=== PATIENT | male | born 1950 ===

== ENCOUNTER 2017-05-03 09:45 | Observation (INO) | payer MEDICARE, OTHER ==
[2017-05-03] MEDS ORDERED: NS 0.9% 1000 ML* 1,000 ML IV ONE (10:01)
[2017-05-03] MEDS ORDERED: Diltiazem IV VIAL* 125 MG/25 ML VIAL ONE ×2 (10:01→19:56)
[2017-05-03] MEDS ORDERED: Diltiazem IV* 5 MG/ML 5 ML VIAL (for loading dose/IV Push) (25 MG) IV SLOW PU ONE (10:01)
[2017-05-03 10:15] LABS: ABS Basophils 0 10^3/ul (0-0.2); ABS Eosinophils 0.1 10^3/ul (0-0.6); ABS Lymphocytes 1.8 10^3/ul (1.0-4.8); ABS Monocytes 0.6 10^3/ul (0-0.8); ABS Neutrophils 4.7 10^3/ul (1.5-7.7); ABS Nucleated RBC 0 10^3/ul; Eosinophil % 1.5 % (0-6); Hematocrit 33 % (42-52); Hemoglobin 10.9 g/dl (14.0-18.0); Lymphocyte % 24.3 % (25-47); Mean Corpuscular HGB Conc 33 g/dl (31-36); Mean Corpuscular Hemoglobin 29 pg (27-31); Mean Corpuscular Volume 87 fL (80-94); Mean Platelet Volume 10 um3 (7.4-10.4); Nucleated Red Blood Cells % 0.1; Platelet Count 183 10^3/ul (150-450); Red Blood Count 3.78 10^6/ul (4.0-5.4); Red Cell Distribution Width 13 % (10.5-15); White Blood Count 7.2 10^3/ul (3.5-10.8)
[2017-05-03 10:21] LABS: EGFR Non-African American 63.8 (>60)
[2017-05-03] MEDS ORDERED: Diltiazem DRIP* 100 MG/100 ML ADDV.BAG IVPB ONE (10:31)
[2017-05-03 10:33] LABS: INR 1.1 (0.77-1.02)
--- NOTE | 2017-05-03 10:38 | RAD ---
INDICATION: Dizziness COMPARISON: None TECHNIQUE: An AP portable view obtained at 1025 hours is submitted. FINDINGS: Bones/Soft Tissues: There are no acute bony findings. Cardiomediastinal: The cardiomediastinal silhouette is top normal in size. Lungs: There are no infiltrates. Pleura: There are no pleural effusions. Other: None IMPRESSION: NO ACTIVE DISEASE.
[2017-05-03 10:43] LABS: Urine Appearance Clear; Urine Blood Negative (Negative); Urine Color Yellow; Urine Ketones Negative (Negative); Urine Protein Negative (Negative); Urine Specific Gravity 1.008 (1.010-1.030); Urine Urobilinogen Negative (Negative)
[2017-05-03] MEDS ORDERED: Diltiazem IV VIAL* 125 MG in NS 0.9% 100 ML* 100 ML IVPB ONE ×4 (11:00→14:41)
[2017-05-03] MEDS ORDERED: Magnesium Sulfate 2 GM IV* 2 GM/50 ML BAG IVPB ONE (11:24)
[2017-05-03] MEDS ORDERED: Dextrose 50% Syringe 50 ML* 25 GM/50 ML SYRINGE IV PUSH PRN (11:51)
[2017-05-03] MEDS ORDERED: Acetaminophen TAB* 325 MG PO PRN (11:54)
[2017-05-03] MEDS: Enoxaparin(*) 80 MG/0.8 ML SYR SUBCUT SCH ×2 (12:03→23:33)
[2017-05-03] MEDS: KCL 10 MEQ/50 ML IVPREMIX* 10 MEQ/50 ML BAG IV SCH ×4 (12:55→17:40)
--- NOTE | 2017-05-03 16:19 | ECHO ---
Patient: JONATHAN MCKNIGHT Rec#: [id number] : 1950 Date: 05/03/2017 Age: 66y Height: 175.26 cm / 69.0 in Weight: 86.18 kg / 189.9 lbs Sex: M BSA: 2.02 Room#: ICU 3 Admit Date#: 05/03/2017 Type: Inpatient Referring: Ggee Jurado NP Reading: Parmjit Garvin MD Radio Engineer: Samara Rowland RDCS,RDMS Transthoracic Echocardiogram Indication: AFIB BP: 123/84 HR: 127 Rhythm: A-Fib Findings History: HTN Technical Comments: The study quality is good. Left Ventricle: The left ventricular chamber size is normal. Moderate concentric left ventricular hypertrophy is observed. Septal wall hypertrophy is observed. Basal septum is severely thickened. The left ventricle appears hyperdynamic. The estimated ejection fraction is greater than 65%. The assessment of diastolic function is non-diagnostic. Left Atrium: The left atrium is severely dilated. Right Ventricle: The right ventricular chamber size and systolic function are within normal limits. Right Atrium: The right atrial cavity size is severely dilated. Aortic Valve: The aortic valve is trileaflet. The aortic valve leaflets are mildly thickened. There is trace to mild aortic regurgitation. There is no evidence of aortic stenosis. Mitral Valve: The mitral valve leaflets appear normal. There is moderate to severe mitral regurgitation. There is no evidence of mitral stenosis. Tricuspid Valve: The tricuspid valve leaflets are normal. There is moderate tricuspid regurgitation. There is evidence of mild pulmonary hypertension. Pulmonic Valve: The pulmonic valve appears normal. There is trace to mild pulmonic regurgitation. Pericardium: There is no significant pericardial effusion. Aorta: The aortic root appears normal. There is mild dilatation of the aortic arch. Pulmonary Artery: The main pulmonary artery is not well visualized. Venous: The inferior vena cava appears normal in size. There is an approximate 50% respiratory change in the inferior vena cava dimension. Summary: There was not any prior study for comparison. Conclusions Moderate concentric left ventricular hypertrophy is observed. The left ventricle appears hyperdynamic. The estimated ejection fraction is greater than 65%. Septal wall hypertrophy is observed. Basal septum is severely thickened. The right ventricular chamber size and systolic function are within normal limits. There is trace to mild aortic regurgitation. There is moderate to severe mitral regurgitation. There is moderate tricuspid regurgitation. There is evidence of mild pulmonary hypertension. There is no significant pericardial effusion. There was not any prior study for comparison. Measurements Name Value Normal Range RVIDd (AP) 2D 3.3 cm (0.9 - 2.6) RVDdMajor (2D) 4.3 cm (2.2 - 4.4) RAd ISD 4CH 7.2 cm (3.4 - 4.9) RA (A4C)W 6 cm (2.9 - 4.6) IVSd (2D) 2.5 cm (0.6 - 1) LVPWd (2D) 1.5 cm (0.6 - 1) LVIDd (2D) 3.2 cm (3.6 - 5.4) LVIDs (2D) 2 cm - LV FS (2D) 38 % (25 - 45) Aortic Annulus 2.1 cm (1.4 - 2.6) Ao root diameter (2D) 3.2 cm (2.1 - 3.5) Ascending Ao 2.5 cm (2.1 - 3.4) Aortic arch 3.9 cm (1.8 - 3.4) LA dimension (AP) 2D 4.8 cm (2.3 - 3.8) LAd ISD 4CH 6.7 cm (2.9 - 5.3) LA ISD 4CH W 6.3 cm (2.5 - 4.5) Name Value Normal Range LA ESV SP 4CH (A/L) 202.44 ml - LA ESV SP 2CH (A/L) 131.12 ml - LA ESV BP (A/L) 170.68 ml - LA ESV BP (A/L) index 85 ml/m2 - LA ESV SP 4CH (MOD) 189.08 ml - LA ESV SP 2CH (MOD) 124.27 ml - LV EDV SP 4CH (MOD) 72.33 ml - LV ESV SP 4CH (MOD) 10.99 ml - EF SP 4CH (MOD) 84.81 % - LV EDV SP 2CH (MOD) 54.29 ml - LV ESV SP 2CH (MOD) 8.66 ml - EF SP 2CH (MOD) 84.05 % - LV EDV BP 84.28 ml - LV ESV BP 14.44 ml - BP EF (MOD) 83 % - Name Value Normal Range MV E-wave Vmax 0.8 m/sec - MV deceleration time 133 msec - LV lateral e' Vmax 0.08 m/sec - LV E:e' lateral ratio 10 ratio - Name Value Normal Range AV Vmax 1.2 m/sec - AV peak gradient 6 mmHg - LVOT Vmax 0.9 m/sec - LVOT peak gradient 3.2 mmHg - NARENDRA Vmax 0.3 m/sec - Name Value Normal Range MV Vmax 1.6 m/sec - MV VTI 23 cm - MV peak gradient 10 mmHg - MV mean gradient 3.9 mmHg - MV PHT 41 msec - MR Vmax 4.71 m/sec - MR VTI 122.34 cm - MVA (PHT) 5.4 cm2 - Name Value Normal Range TR Vmax 2.6 m/sec - TR peak gradient 27 mmHg - RAP 8 mmHg - RVSP 35 mmHg - IVC diameter 1.8 cm - Name Value Normal Range PV Vmax 0.5 m/sec - PV peak gradient 1 mmHg -
[2017-05-03] MEDS: Insulin LISPRO* 1 UNITS UNIT SUBCUT SCH (17:49)
--- NOTE | 2017-05-03 18:30 | HP ---
CC: Dr. Antonio Rosas, phone# [phone], [address] [place] [address] * HOSPITAL MEDICINE HISTORY AND PHYSICAL: DATE OF ADMISSION: 05/03/17 PRIMARY CARE PHYSICIAN: Dr. Antonio Rosas. ATTENDING PROVIDER: Doug James MD* (DICTATED BY MEAGHAN GUERRIER NP) CHIEF COMPLAINT: Palpitations and lightheadedness. HISTORY OF PRESENT ILLNESS: Mr. Arenas is a 66-year-old male with a past medical history of diabetes, hypertension, hyperlipidemia, and prostate cancer diagnosed March 2015, who presents to the hospital today with concern for over a week of lightheadedness with palpitations. Mr. Arenas states he began to feel unwell 1 week ago, he noted that he felt quite dizzy when standing up, he felt nauseous, but did not vomit, this always seemed to resolve when he would sit down. He had some body aches and a low-grade fever. He had felt palpitations whenever standing. Last night, he could not sleep through the night because the palpitations persisted and he felt like his heart was "going all over the place." He states he has never had these symptoms prior to a week ago. He is on Lupron therapy for his prostate cancer and says that at times this causes hot flashes and shortness of breath, but felt that these symptoms were different. In the emergency room, Mr. Arenas was confirmed to be in atrial fibrillation with a heart rate running as high as 150. His labs showed that he has anemia with a hemoglobin of 10.9, hematocrit of 33, has unknown baseline hemoglobin and hematocrit. He has an elevated BNP to 1413, no known baseline. Chest x-ray shows no acute process. PAST MEDICAL HISTORY: 1. Prostate cancer since March 2015, status post 5 weeks' radiation, seed implantation, and surgery. 2. Type 2 diabetes, non-insulin dependent. 3. Recent diagnosis of 2 months ago of hypertension. 4. Hyperlipidemia. MEDICATIONS: As outpatient are: 1. Flomax 0.4 mg q. day. 2. Hydrochlorothiazide 12.5 mg p.o. q. day. 3. Aspirin 81 mg p.o. q. day. 4. Metformin 500 mg b.i.d. 5. Amlodipine 5 mg p.o. q. day. 6. Simvastatin 10 mg p.o. q. day. 7. Lupron 1 per month. FAMILY HISTORY: The patient reports his mother at age 81 with complications related to Alzheimer's disease. His mother also had breast cancer. Sister had breast cancer. There is also a significant amount of diabetes in the family. SOCIAL HISTORY: No tobacco or drug use. He drinks about 2 drinks per month. He is a retired musician. He lives with his , Ernestina, who is the healthcare proxy. REVIEW OF SYSTEMS: A 14-point review of systems was completed with Mr. Arenas, and all those not mentioned above were negative. PHYSICAL EXAMINATION GENERAL: Mr. Arenas is lying in the bed. He is in absolutely no acute distress. His at the bedside. VITAL SIGNS: Temperature 97.5, pulse rate 128 to 140, respiratory rate 20, O2 saturation 96% on room air, blood pressure 127/85. LUNGS: Clear to auscultation bilaterally with no accessory muscle use and good aeration. HEART: S1, S2. No murmur, rub, or gallop, and irregular and rapid. ABDOMEN: Soft, nontender with bowel sounds positive x4. EXTREMITIES: No cyanosis, no edema. NEURO: He is alert, He is oriented x3. He moves all extremities equally. There is no facial asymmetry or focal weakness. Extraocular movements are intact. SKIN: Intact. DIAGNOSTIC STUDIES/LAB DATA: WBC , hemoglobin 10.9, hematocrit 33, platelet count 183. INR 1.10. Sodium 136, potassium 3.6, chloride 104, serum bicarbonate 22, BUN 18, creatinine 1.15, glucose 172, lactic acid 2.9, magnesium 1.8. Iron 66, TIBC 298, percent saturation 22. AST 78, ALT 113. Troponin 0.03. CRP 14.60. BNP 1413. TSH 1.98. Folate greater than 20. Vitamin B12 734. Chest x-ray shows no active disease. EKG shows atrial fibrillation with heart rate of about 140. ASSESSMENT AND PLAN: Mr. Arenas is 66-year-old male with a past medical history of diabetes, hypertension, prostate cancer, who presents to the hospital today with concern for lightheadedness and palpitations, found to be in rapid atrial fibrillation, new onset. Our plans are for inpatient admission as expected length of stay to be greater than 2 days for the followin. Rapid atrial fibrillation. The patient has been given a Cardizem bolus and then Cardizem drip has been initiated in the emergency department. His heart rate remains elevated. Plan to monitor the patient in the intensive care unit overnight to allow for adjustment and titration of Cardizem or addition of other agents as needed. I am not clear what is driving the patient's atrial fibrillation. He has no history of lung disease, he is not a smoker. He is very infrequent drinker. He does not report any recent illnesses. I do note that he is anemic and it is unclear of what chronicity this finding is. I have asked the records from the patient's primary care office. I have also checked stool guaiac, which has been sent as well as iron, vitamin B12, and folate, which have already been resulted and showed that he does not have any deficiencies there. In terms of the workup, the patient will have a transthoracic echocardiogram. I am repleting his electrolytes with potassium and magnesium supplementation. I have consulted Dr. Garvin who will be seeing the patient with question of need for possible transesophageal echocardiogram with cardioversion tomorrow. The patient will have a transthoracic echocardiogram today. In terms of anticoagulation, the patient will have Lovenox b.i.d. 2. Type 2 diabetes. Plan to hold the patient's medication and will have blood glucoses q.a.c. with lispro sliding scale insulin. 3. Hypertension. Plan to hold amlodipine and hydrochlorothiazide as the rate- control agents that are needed for heart rate control will likely lower his blood pressure. 4. Code status. Full code. TIME SPENT: Approximately 60 minutes was spent on admission of this patient; more than half time was spent with the patient at the bedside reviewing the events leading up to this hospitalization, performing the physical examination, and reviewing my plan of care. MEAGHAN GUERRIER NP [id number]/[facility] #: [id number] AYUSH
[2017-05-03] MEDS ORDERED: Diltiazem IV VIAL* 125 MG in NS 0.9% 100 ML* 100 ML IVPB SCH (21:00)
--- NOTE | 2017-05-04 00:01 | CONS ---
CARDIOLOGY CONSULTATION: DATE OF CONSULTATION: 05/03/17 INDICATION FOR CONSULTATION: Atrial fibrillation. HISTORY OF PRESENT ILLNESS: The patient is a 66-year-old gentleman with prostate cancer, he is on Lupron injections who came to the emergency room because of feeling lightheaded and palpitations. He was found to be in atrial fibrillation with rapid ventricular response. In speaking with the patient, he states for the past month or so, he has been having episodes of sweating and feeling uncomfortable. These are very similar to his ongoing symptoms from his Lupron injections. However, in the last month or so, he has also been noticing palpitations and lightheadedness. This is different from his usual hot flashes. He states when they occur, they last about 3 or 4 hours and then resolve. He denies any chest pain. He denies any orthopnea. He does have lightheadedness. He denies any syncope. Again, on arrival to the emergency room, he was in atrial fibrillation with rapid ventricular response, his blood pressure was stable. PAST MEDICAL HISTORY: Significant for: 1. Prostate cancer. 2. Type 2 diabetes. 3. Hypertension. 4. Hyperlipidemia. OUTPATIENT MEDICATIONS: 1. Flomax 0.4 mg a day. 2. Hydrochlorothiazide 12.5 mg a day. 3. Aspirin 81 mg a day. 4. Metformin 500 mg b.i.d. 5. Amlodipine 5 mg a day. 6. Simvastatin 10 mg a day. 7. Lupron injections once a month. FAMILY HISTORY: His mother at 81 of Alzheimer disease. He does have a significant history of diabetes in his family. SOCIAL HISTORY: He denies tobacco use. He does have 1 to 2 drinks of alcohol a month. He is a retired musician. He lives with his . PHYSICAL EXAMINATION: Vital Signs: Height is 5 feet 9 inches, weight is 195 pounds. Temperature 97.9, heart rate 111, blood pressure 128/82, respiratory rate is 15, oxygen saturation 97% on room air. Sclerae anicteric. Oropharynx is pink without erythema. Carotids are 2+ without bruits. JVD is normal. Thyroid is normal. Cardiac Exam: S1, S2 with a 1/6 systolic ejection murmur heard best at the apex. PMI is normal. Lungs: Clear to auscultation bilaterally. There is no dullness to percussion. Abdomen is soft, nontender, nondistended with normoactive bowel sounds. Extremities show no edema. He has 2+ pulses throughout. The patient is awake, alert and oriented. He moves all 4 extremities equally. DIAGNOSTIC STUDIES/LAB DATA: White blood cell count 7.2, hemoglobin 10, hematocrit 33, platelet count 183,000. Chemistries are within normal limits. BUN 18, creatinine 1.15. AST and ALT are mildly elevated. BNP is 1413. Troponin level 0.03. INR is 1.1. EKG demonstrates atrial fibrillation with rapid ventricular response. Echocardiogram shows moderate left ventricular hypertrophy. He does have septal hypertrophy, but no evidence of outflow tract obstruction. He has moderate to severe mitral regurgitation, mild tricuspid regurgitation with mild pulmonary hypertension. IMPRESSION: This is a 66-year-old gentleman with a history of prostate cancer who was admitted to the emergency room because of palpitations and lightheadedness. He was found to be in atrial fibrillation with a rapid ventricular response. The patient was started on IV Cardizem. He was started on Lovenox injections. It is unclear how long the patient has been in atrial fibrillation. The patient will be evaluated for transesophageal echocardiogram and possible cardioversion. The patient is mildly anemic, this is likely due to anemia of chronic disease. However, this will be evaluated before putting him on long-term anticoagulation. The patient will need followup as an outpatient with possible stress testing and repeat echocardiogram to evaluate his mitral regurgitation. This was discussed with Gege Jurado, nurse practitioner. [id number]/[facility] #: [id number] AYUSH
[2017-05-04 06:11] LABS: EGFR Non-African American 59.6 (>60)
--- NOTE | 2017-05-04 07:38 | PN ---
Subjective Date of Service: 05/04/17 Interval History: Mr. Arenas denies any lightheadedness, palpitations or chest pain. He converted to NSR overnight. He developed pain to his right knee overnight with swelling consistent with his history of gout. His last gout attack to that knee was approximately 2 months ago. Objective Active Medications: Acetaminophen (Tylenol Tab*) 650 mg PO Q6H PRN Aspirin (Aspirin Ec Low Dose*) 81 mg PO DAILY GRACIE Atorvastatin Calcium (Lipitor*) 5 mg PO DAILY GRACIE Dextrose (D50w Syringe 50 Ml*) 12.5 gm IV PUSH .FOR FS < 60 - SS PRN Enoxaparin Sodium (Lovenox(*)) 80 mg SUBCUT Q12H GRACIE Diltiazem HCl 125 mg/ Sodium (Chloride) 125 mls @ 15 mls/hr IVPB Q8H GRACIE; 15 MG /HR Insulin Human Lispro (Humalog*) 0 units SUBCUT AC GRACIE Tamsulosin HCl (Flomax Cap*) 0.4 mg PO DAILY GRACIE Vital Signs: Temp Pulse Resp BP Pulse Ox 99.4 F 77 18 130/92 82 05/04/17 07:29 05/04/17 09:15 05/04/17 09:15 05/04/17 09:00 05/04/17 09:15 Oxygen Devices in Use Now: None Appearance: Male lying in bed in NAD Eyes: No Scleral Icterus Ears/Nose/Mouth/Throat: Mucous Membranes Moist Neck: Trachea Midline Respiratory: Symmetrical Chest Expansion and Respiratory Effort, Clear to Auscultation Cardiovascular: NL Sounds; No Murmurs; No JVD, No Edema Abdominal: NL Sounds; No Tenderness; No Distention Extremities: - - Right knee with mild swelling, no warmth, ROM impaired by pain Skin: No Rash or Ulcers Neurological: Alert and Oriented x 3, NL Muscle Strength and Tone Nutrition: Taking PO's Result Diagrams: 05/03/17 09:58 05/04/17 05:45 Microbiology and Other Data: Vital Signs: Temp Pulse Resp BP Pulse Ox 99.4 F 74 31 120/74 97 05/04/17 07:29 05/04/17 06:00 05/04/17 06:00 05/04/17 06:00 05/04/17 06:00 Assess/Plan/Problems-Billing Assessment: Mr. Arenas is a 66 yo male with a PMH of prostate cancer, DM, and hypertension who was admitted on 05/03/16 with rapid atrial fibrillation. - Patient Problems (1) Atrial fibrillation Comment: - Converted to NSR overnight, HR 70s. Plan to ambulate to determine if patient able to maintain NSR. - D/C diltiazem and start po metoprolol (cardizem interacts with colchicine). - Continue lovenox. - Appreciate cardiology consultation. (2) Anemia Comment: - Suspect anemia of chronic disease, awaiting records from PCP. - GUIAC negative. No iron, vit B12, or folate deficiency. (3) Diabetes Comment: - BGs well controlled. - Continue lispro SSI coverage with meals. Hold metformin. (4) Hypertension Comment: - SBP 110-130s - Hold amlodipine and hctz, start metoprolol now. (5) Hyperlipidemia Comment: - Continue simvastatin. (6) DVT prophylaxis Comment: - Lovenox. (7) Full code status Comment: Status and Disposition: Inpatient. Anticipate discharge to home when medically stable.
[2017-05-04] MEDS ORDERED: Atorvastatin* 10 MG TAB PO SCH (09:00)
[2017-05-04] MEDS ORDERED: Aspirin EC Low Dose* 81 MG TAB.EC PO SCH (09:00)
[2017-05-04] MEDS ORDERED: Tamsulosin CAP* 0.4 MG PO SCH (09:00)
[2017-05-04] MEDS ORDERED: Colchicine* 0.6 MG TAB PO ONE (09:32)
--- NOTE | 2017-05-04 09:36 | ED ---
Nile Pal Angela, scribed for Jonh Sabillon MD on 05/03/17 at 1006 . Palpitations / Dysrhythmia - HPI Summary HPI Summary: This pt is a 66 y/o male presenting to [facility] via EMS c/o dizziness since this morning. Pt describes dizziness as room spinning. Pt braced himself against the wall and called 911. EMS noted the pt to be in new onset of atrial fibrillation. He currently c/o palpitations. Pt reports he had intermittent fever x2 weeks after he received the flu shot. He denies sore throat, runny nose, chest pain, SOB. He has had lupron injections for prostate CA. Pt is currently on aspirin. - History of Current Complaint Chief Complaint: EDDizziness Time Seen by Provider: 05/03/17 09:51 Hx Obtained From: Patient Onset/Duration: Lasting Hours, Still Present Timing: Constant Severity Initially: Moderate Character: Fast, Irregular Aggravating: Nothing Alleviating: Nothing Associated Signs & Symptoms: Dizzy - Allergy/Home Medications Allergies/Adverse Reactions: Allergies Allergy/AdvReac Type Severity Reaction Status Date / Time No Known Allergies Allergy Verified 05/03/17 09:54 Home Medications: Home Medications Aspirin EC Low Dose* [Ecotrin EC Low Dose 81 MG*] 81 mg PO DAILY 05/03/17 [ History Confirmed 05/03/17] Hydrochlorothiazide TAB* [Hydrodiuril TAB*] 12.5 mg PO DAILY 05/03/17 [History Confirmed 05/03/17] Simvastatin TAB(NF) [Zocor(NF)] 10 mg PO DAILY 05/03/17 [History Confirmed 05/03] Tamsulosin CAP* [Flomax CAP*] 0.4 mg PO DAILY 05/03/17 [History Confirmed ] amLODIPine TAB* [Norvasc 5 mg TAB*] 5 mg PO DAILY 05/03/17 [History Confirmed ] metFORMIN* [Glucophage 500 MG TAB *] 500 mg PO BID 05/03/17 [History Confirmed 05/03/17] PMH/Surg Hx/FS Hx/Imm Hx Endocrine/Hematology History: Reports: Hx Diabetes Cardiovascular History: Reports: Hx Hypercholesterolemia, Hx Hypertension - Cancer History Cancer Type, Location and Year: Prostate CA Infectious Disease History: No Infectious Disease History: Denies: Traveled Outside the [place] in Last 30 Days - Family History Known Family History: Negative: Cardiac Disease - Social History Alcohol Use: None Substance Use Type: Reports: None Smoking Status (MU): Never Smoked Tobacco Review of Systems Positive: Fever Negative: Sore Throat, Nasal Discharge Positive: Palpitations. Negative: Chest Pain Negative: Shortness Of Breath Neurological: Other - POS: dizziness All Other Systems Reviewed And Are Negative: Yes Physical Exam - Summary Physical Exam Summary: VITAL SIGNS: Reviewed. GENERAL: Patient is a well-developed and nourished male who is lying comfortable in the stretcher. Patient is not in any acute respiratory distress. HEAD AND FACE: No signs of trauma. No ecchymosis, hematomas or skull depressions. No sinus tenderness. EYES: PERRLA, EOMI x 2, No injected conjunctiva, no nystagmus. EARS: Hearing grossly intact. Ear canals and tympanic membranes are within normal limits. MOUTH: Oropharynx within normal limits. NECK: Supple, trachea is midline, no adenopathy, no JVD, no carotid bruit, no c- spine tenderness, neck with full ROM. CHEST: Symmetric, no tenderness at palpation LUNGS: Clear to auscultation bilaterally. No wheezing or crackles. CVS: Irregular rate and rhythm, increased tachycardia. S1 and S2 present, no murmurs or gallops appreciated. ABDOMEN: Soft, non-tender. No signs of distention. No rebound no guarding, and no masses palpated. Bowel sounds are normal. EXTREMITIES: FROM in all major joints, no edema, no cyanosis or clubbing. NEURO: Alert and oriented x 3. No acute neurological deficits. Speech is normal and follows commands. SKIN: Dry and warm Triage Information Reviewed: Yes Vital Signs On Initial Exam: Initial Vitals Temp Pulse Resp BP Pulse Ox 97.4 F 130 18 157/92 100 05/03/17 09:48 05/03/17 09:48 05/03/17 09:48 05/03/17 09:48 05/03/17 09:48 Vital Signs Reviewed: Yes Diagnostics - Vital Signs Vital Signs Temp Pulse Resp BP Pulse Ox 05/03/17 09:48 97.4 F 130 18 157/92 100 - Laboratory Lab Results: Lab Results 05/03/17 05/03/17 05/03/17 Range/Units 09:58 09:58 09:58 WBC (3.5-10.8) 10^3/ul RBC (4.0-5.4) 10^6/ul Hgb (14.0-18.0) g/dl Hct (42-52) % MCV (80-94) fL MCH (27-31) pg MCHC (31-36) g/dl RDW (10.5-15) % Plt Count (150-450) 10^3/ul MPV (7.4-10.4) um3 Neut % (Auto) (38-83) % Lymph % (Auto) (25-47) % Windsor % (Auto) (1-9) % Eos % (Auto) (0-6) % Baso % (Auto) (0-2) % Absolute Neuts (auto) (1.5-7.7) 10^3/ul Absolute Lymphs (auto) (1.0-4.8) 10^3/ul Absolute Monos (auto) (0-0.8) 10^3/ul Absolute Eos (auto) (0-0.6) 10^3/ul Absolute Basos (auto) (0-0.2) 10^3/ul Absolute Nucleated RBC 10^3/ul Nucleated RBC % INR (Anticoag Therapy) 1.10 H (0.77-1.02) APTT 31.5 (26.0-36.3) seconds Sodium 136 (133-145) mmol/L Potassium 3.6 (3.5-5.0) mmol/L Chloride 104 (101-111) mmol/L Carbon Dioxide 22 (22-32) mmol/L Anion Gap 10 (2-11) mmol/L BUN 18 (6-24) mg/dL Creatinine 1.15 (0.67-1.17) mg/dL Est GFR ( Amer) 82.1 (>60) Est GFR (Non-Af Amer) 63.8 (>60) BUN/Creatinine Ratio 15.7 (8-20) Glucose 172 H (70-100) mg/dL Lactic Acid (0.5-2.0) mmol/L Calcium 9.3 (8.6-10.3) mg/dL Magnesium 1.8 L (1.9-2.7) mg/dL Total Bilirubin 0.50 (0.2-1.0) mg/dL AST 78 H (13-39) U/L ALT 113 H (7-52) U/L Alkaline Phosphatase 91 (34-104) U/L Troponin I 0.03 (<0.04) ng/mL C-Reactive Protein 14.60 H (< 5.00) mg/L B-Natriuretic Peptide 1413 H ( - 100) pg/mL Total Protein 6.9 (6.4-8.9) g/dL Albumin 3.8 (3.2-5.2) g/dL Globulin 3.1 (2-4) g/dL Albumin/Globulin Ratio 1.2 (1-3) TSH 1.98 (0.34-5.60) mcIU/mL Urine Color Urine Appearance Urine pH (5-9) Ur Specific Bloomer (1.010-1.030) Urine Protein (Negative) Urine Ketones (Negative) Urine Blood (Negative) Urine Nitrate (Negative) Urine Bilirubin (Negative) Urine Urobilinogen (Negative) Ur Leukocyte Esterase (Negative) Urine Glucose (Negative) Urine Opiates Screen (None Detect) Ur Barbiturates Screen (None Detect) Ur Phencyclidine Scrn (None Detect) Ur Amphetamines Screen (None Detect) U Benzodiazepines Scrn (None Detect) Urine Cocaine Screen (None Detect) U Cannabinoids Screen (None Detect) Serum Alcohol < 10 (<10) mg/dL 05/03/17 05/03/17 05/03/17 Range/Units 09:58 09:58 10:30 WBC 7.2 (3.5-10.8) 10^3/ul RBC 3.78 L (4.0-5.4) 10^6/ul Hgb 10.9 L (14.0-18.0) g/dl Hct 33 L (42-52) % MCV 87 (80-94) fL MCH 29 (27-31) pg MCHC 33 (31-36) g/dl RDW 13 (10.5-15) % Plt Count 183 (150-450) 10^3/ul MPV 10 (7.4-10.4) um3 Neut % (Auto) 65.5 (38-83) % Lymph % (Auto) 24.3 L (25-47) % Windsor % (Auto) 8.1 (1-9) % Eos % (Auto) 1.5 (0-6) % Baso % (Auto) 0.6 (0-2) % Absolute Neuts (auto) 4.7 (1.5-7.7) 10^3/ul Absolute Lymphs (auto) 1.8 (1.0-4.8) 10^3/ul Absolute Monos (auto) 0.6 (0-0.8) 10^3/ul Absolute Eos (auto) 0.1 (0-0.6) 10^3/ul Absolute Basos (auto) 0 (0-0.2) 10^3/ul Absolute Nucleated RBC 0 10^3/ul Nucleated RBC % 0.1 INR (Anticoag Therapy) (0.77-1.02) APTT (26.0-36.3) seconds Sodium (133-145) mmol/L Potassium (3.5-5.0) mmol/L Chloride (101-111) mmol/L Carbon Dioxide (22-32) mmol/L Anion Gap (2-11) mmol/L BUN (6-24) mg/dL Creatinine (0.67-1.17) mg/dL Est GFR ( Amer) (>60) Est GFR (Non-Af Amer) (>60) BUN/Creatinine Ratio (8-20) Glucose (70-100) mg/dL Lactic Acid 2.9 H* (0.5-2.0) mmol/L Calcium (8.6-10.3) mg/dL Magnesium (1.9-2.7) mg/dL Total Bilirubin (0.2-1.0) mg/dL AST (13-39) U/L ALT (7-52) U/L Alkaline Phosphatase (34-104) U/L Troponin I (<0.04) ng/mL C-Reactive Protein (< 5.00) mg/L B-Natriuretic Peptide ( - 100) pg/mL Total Protein (6.4-8.9) g/dL Albumin (3.2-5.2) g/dL Globulin (2-4) g/dL Albumin/Globulin Ratio (1-3) TSH (0.34-5.60) mcIU/mL Urine Color Urine Appearance Urine pH (5-9) Ur Specific Bloomer (1.010-1.030) Urine Protein (Negative) Urine Ketones (Negative) Urine Blood (Negative) Urine Nitrate (Negative) Urine Bilirubin (Negative) Urine Urobilinogen (Negative) Ur Leukocyte Esterase (Negative) Urine Glucose (Negative) Urine Opiates Screen None detected (None Detect) Ur Barbiturates Screen None detected (None Detect) Ur Phencyclidine Scrn None detected (None Detect) Ur Amphetamines Screen None detected (None Detect) U Benzodiazepines Scrn None detected (None Detect) Urine Cocaine Screen None detected (None Detect) U Cannabinoids Screen None detected (None Detect) Serum Alcohol (<10) mg/dL 05/03/17 Range/Units 10:30 WBC (3.5-10.8) 10^3/ul RBC (4.0-5.4) 10^6/ul Hgb (14.0-18.0) g/dl Hct (42-52) % MCV (80-94) fL MCH (27-31) pg MCHC (31-36) g/dl RDW (10.5-15) % Plt Count (150-450) 10^3/ul MPV (7.4-10.4) um3 Neut % (Auto) (38-83) % Lymph % (Auto) (25-47) % Windsor % (Auto) (1-9) % Eos % (Auto) (0-6) % Baso % (Auto) (0-2) % Absolute Neuts (auto) (1.5-7.7) 10^3/ul Absolute Lymphs (auto) (1.0-4.8) 10^3/ul Absolute Monos (auto) (0-0.8) 10^3/ul Absolute Eos (auto) (0-0.6) 10^3/ul Absolute Basos (auto) (0-0.2) 10^3/ul Absolute Nucleated RBC 10^3/ul Nucleated RBC % INR (Anticoag Therapy) (0.77-1.02) APTT (26.0-36.3) seconds Sodium (133-145) mmol/L Potassium (3.5-5.0) mmol/L Chloride (101-111) mmol/L Carbon Dioxide (22-32) mmol/L Anion Gap (2-11) mmol/L BUN (6-24) mg/dL Creatinine (0.67-1.17) mg/dL Est GFR ( Amer) (>60) Est GFR (Non-Af Amer) (>60) BUN/Creatinine Ratio (8-20) Glucose (70-100) mg/dL Lactic Acid (0.5-2.0) mmol/L Calcium (8.6-10.3) mg/dL Magnesium (1.9-2.7) mg/dL Total Bilirubin (0.2-1.0) mg/dL AST (13-39) U/L ALT (7-52) U/L Alkaline Phosphatase (34-104) U/L Troponin I (<0.04) ng/mL C-Reactive Protein (< 5.00) mg/L B-Natriuretic Peptide ( - 100) pg/mL Total Protein (6.4-8.9) g/dL Albumin (3.2-5.2) g/dL Globulin (2-4) g/dL Albumin/Globulin Ratio (1-3) TSH (0.34-5.60) mcIU/mL Urine Color Yellow Urine Appearance Clear Urine pH 6.0 (5-9) Ur Specific Bloomer 1.008 L (1.010-1.030) Urine Protein Negative (Negative) Urine Ketones Negative (Negative) Urine Blood Negative (Negative) Urine Nitrate Negative (Negative) Urine Bilirubin Negative (Negative) Urine Urobilinogen Negative (Negative) Ur Leukocyte Esterase Negative (Negative) Urine Glucose Negative (Negative) Urine Opiates Screen (None Detect) Ur Barbiturates Screen (None Detect) Ur Phencyclidine Scrn (None Detect) Ur Amphetamines Screen (None Detect) U Benzodiazepines Scrn (None Detect) Urine Cocaine Screen (None Detect) U Cannabinoids Screen (None Detect) Serum Alcohol (<10) mg/dL Result Diagrams: 05/03/17 09:58 05/03/17 09:58 Lab Statement: Any lab studies that have been ordered have been reviewed, and results considered in the medical decision making process. - Radiology Chest XR Xray Interpretation: No Acute Changes - IMPRESSION: No active disease. Dr. Sabillon has reviewed this radiology report. Radiology Interpretation Completed By: Radiologist - EKG 09:51 Cardiac Rate: Tachycardia EKG Rhythm: Atrial Fibrillation - at 129 bpm EKG Interpretation: atrial fibrillation with RVR. ST depression V4-V6. Course/Dx - Course Assessment/Plan: This pt is a 66 y/o male presenting to [facility] via EMS c/o dizziness since this morning. Pt describes dizziness as room spinning. Pt braced himself against the wall and called 911. EMS noted the pt to be in new onset of atrial fibrillation. He currently c/o palpitations. Pt reports he had intermittent fever x2 weeks after he received the flu shot. He denies sore throat, runny nose, chest pain, SOB. He has had lupron injections for prostate CA. Pt is currently on aspirin. Test results without any significant abnormalities, except for slight chronic anemia, glucose of 172, increase liver functions tests, BNP of 1413. The pt came in with atrial fibrillation with RVR at 130 bpm. In the ED course, we placed the pt in a monitor and IV access was obtained. He was given Cardizem bolus, however the tachycardia continued. Therefore he was placed in Cardizem drip. The BNP is elevated therefore he will be given Lasix. At this point I discussed the test results and findings with Dr. Landaverde, hospitalist, who accepted the pt for admission. Pt is hemodynamically stable, alert and oriented x3. - Diagnoses Differential Diagnosis/HQI/PQRI: Positive: Congestive Heart Failure, Paroxymal SVT, Theophylline Toxicity Provider Diagnoses: Atrial fibrillation with RVR, CHF (congestive heart failure) - Physician Notifications Discussed Care Of Patient With: Lisandro Landaverde Time Discussed With Above Provider: 10:45 Instructed by Provider To: Other - I discussed pt care with Dr. Landaverde, hospitalist, who has agreed to admit the pt. - Critical Care Time Critical Care Time: 75-104 min Discharge - Discharge Plan Condition: Stable Disposition: ADMITTED TO [facility] documentation as recorded by the Nile stokes Angela accurately reflects the service I personally performed and the decisions made by me, Jonh Sabillon MD.
[2017-05-04] MEDS ORDERED: Metoprolol Tartrate TAB* 25 MG PO SCH (10:00)
[2017-05-04] MEDS ORDERED: Allopurinol TAB* 100 MG PO SCH (10:00)
[2017-05-04] MEDS: Insulin LISPRO* 1 UNITS UNIT SUBCUT SCH (10:25)
[2017-05-04] MEDS ORDERED: Dronedarone TAB* 400 MG PO SCH (12:00)
[2017-05-04] MEDS ORDERED: Pneumococcal *Vac Polyvalent 0.5 ML VIAL IM ONE (12:00)
[2017-05-04] MEDS: Enoxaparin(*) 80 MG/0.8 ML SYR SUBCUT SCH (12:24)
[2017-05-04 13:52] VITALS: BP 111/77
--- NOTE | 2017-05-04 23:50 | DS ---
CC: Dr. Antonio Rosas * [facility] MEDICINE DISCHARGE SUMMARY: DATE OF ADMISSION: 05/03/17 DATE OF DISCHARGE: 05/04/17 PRIMARY CARE PROVIDER: Dr. Antonio Rosas. ATTENDING PHYSICIAN: Doug James MD * (dictation provided by Gege Jurado NP). PRIMARY DIAGNOSES: 1. Rapid atrial fibrillation. 2. Anemia. SECONDARY DIAGNOSES: 1. Prostate cancer diagnosed in March 2015, status post 5 weeks' radiation, seed implantation, and surgery. 2. Type 2 diabetes, non-insulin dependent. 3. Recent diagnosis of hypertension 2 months ago. 4. Hyperlipidemia. MEDICATIONS: At the time of discharge are: 1. Xarelto 20 mg p.o. q.p.m. 2. Multaq 400 mg p.o. b.i.d. 3. Allopurinol 100 mg p.o. daily. 4. Simvastatin 10 mg p.o. at bedtime. 5. Amlodipine 5 mg p.o. daily. 6. Metformin 500 mg p.o. b.i.d. 7. Aspirin 81 mg p.o. daily. 8. Hydrochlorothiazide 12.5 mg daily. 9. Tamsulosin 0.4 mg p.o. daily. HOSPITAL COURSE: Mr. Arenas is a 66-year-old male with a past medical history as mentioned above who presented to the hospital on 05/03/17 with concern for lightheadedness and palpitations. Please see the dictated H and P from myself for complete details. In brief, at the time of admission, the patient was confirmed to be in AFib with a rapid ventricular response with a heart rate running as high as 140. He had potassium of 3.6, which was repleted as well as a magnesium of 1.8, which was repleted. He had a BNP, which was 1413 and his blood pressure was stable. Mr. Arenas was admitted to the hospital for treatment of new onset rapid atrial fibrillation. He received diltiazem via intravenous infusion. With this by the evening, he had converted to a normal sinus rhythm with a heart rate running about 70. He has remained in normal sinus rhythm since last evening. He has been ambulated on the intensive care unit without any atrial fibrillation noted. The patient has been seen in consultation by Dr. Garvin from Cardiology who recommended starting Multaq. The patient had a transthoracic echocardiogram. The transthoracic echocardiogram shows that there is septal wall hypertrophy with basal septum being severely thickened. There is moderate- to-severe mitral regurgitation, moderate tricuspid regurgitation. These findings are likely secondary to untreated hypertension, for which treatment had been started 2 months ago. The patient was initially on Lovenox injections for anticoagulation, but has now been transitioned over to Xarelto. During this hospitalization, the patient was noted to be anemic with the hemoglobin running approximately 10. We, of course, are concerned about this given the need for anticoagulation. He had a stool guaiac which is negative. His iron stores are normal as well as his vitamin B12 and folate. I did review the patient's previous labs, which the patient had available on his phone and it shows that the patient has had a slow fall in his hemoglobin over the past 3 years. His last hemoglobin was approximately 11.2. Mr. Arenas follows routinely for medical care in [facility]. I have recommended to him that he should consider obtaining a primary care physician locally given the complex problems that are being managed now and that this will be helpful for followup of his anemia as well. I suspect at this point that it is anemia of chronic disease given his recent diagnosis of prostate cancer. Mr. Arenas is medically stable for discharge to home. Our office should be calling the patient for a followup appointment with the local primary care physician. DISPOSITION: To home. DIET: Low-fat, low-salt, low-carb. ACTIVITY: As tolerated. FOLLOWUP PLANS: Please follow up with the local PCP of your choosing and/or Dr. Rosas, in [facility]. TIME SPENT: Approximately 60 minutes was spent in the discharge of this patient, more than half the time was spent with the patient at the bedside reviewing the events leading up to this hospitalization performing the physical examination and reviewing my plan of care. GEGE JURADO, BRYANT [id number]/[facility] #: [id number] AYUSH
== END 2017-05-04 14:25 | disposition home or self-care (01) ==
LOC: ED 09:45 → ICU 11:21 → INTOOBSV 11:21
PROVIDERS: ADMIT Internal Medicine; ATTEND Internal Medicine
DX: I48.91 Unspecified atrial fibrillation (principal); C61 Malignant neoplasm of prostate; D64.9 Anemia, unspecified; I10 Essential (primary) hypertension; E78.5 Hyperlipidemia, unspecified; E11.9 Type 2 diabetes mellitus without complications; I50.9 Heart failure, unspecified; R42 Dizziness and giddiness; R00.2 Palpitations; R50.9 Fever, unspecified; Z79.82 Long term (current) use of aspirin
CPT/HCPCS: 36415; 71045; 80048; 80053; 80307; 80320; 81003; 82272; 82607; 82746; 83540; 83550; 83605; 83735; 83880; 84443; 84484; 85025; 85610; 85730; 86140; 87641; 90472; 90732; 93005; 93306; 96360; 99285; A9270-GY; G0009; G0378; G0480; J1650; J3475; J3480